=== PATIENT | female | born 1955 | race Caucasian/White ===

== ENCOUNTER 2018-10-02 15:24 | Inpatient (IN) ==
[2018-10-02] MEDS ORDERED: CATAPRES PO ONE (16:04)
[2018-10-02] MEDS ORDERED: LOPRESSOR PO ONE (16:04)
[2018-10-02] MEDS ORDERED: ATIVAN PO ONE (16:50)
[2018-10-02 17:27] LABS: BASO# 0.03 X1000 (0.0-0.2); BASO% 0.4 % (0.0-0.8); EOS# 0.29 X1000 (0.0-0.7); EOS% 3.9 % (0.0-10.0); HEMATOCRIT 31.2 % (37.0-47.0); HEMOGLOBIN 9.7 g/dL (12.0-16.0); IMM GRAN# 0.03 X1000 (0.0-0.04); IMM GRAN% 0.4 % (0.0-0.5); LYMPH# 1.94 X1000 (1.2-3.4); LYMPH% 25.9 % (20.5-51.1); MCH 31.4 PG (27-31); MCHC 31.1 g/dL (33-37); MONO% 9.3 % (1.7-9.3); MPV 10.3 FL (7.4-10.4); NEUT# 4.51 X1000 (1.4-6.5); NEUT% 60.1 % (42.2-75.2); PLT 231 X1000 (130-400); RBC 3.09 XMIL (4.2-5.4); RDW 12.6 % (11.5-14.5)
--- NOTE | 2018-10-02 17:33 | Diag Imaging Result Doc PS360 ---
EXAM: CHEST-1 VIEW HISTORY: chest pain TECHNIQUE: Portable chest single view COMPARISON: 03/17/2014 FINDINGS: The lungs are well expanded. The heart is not enlarged. The vessels are not distended. There are no infiltrates. No effusion identified. There is a granuloma in the mid left lung. IMPRESSION: Negative exam. Electronically signed by Sarmad Fonseca 10/02/2018 5:30 PM
[2018-10-02 17:36] LABS: INR 0.93; PROTIME 13.2 Seconds (11.0-16.0)
[2018-10-02 17:37] LABS: PTT 32.6 Seconds (22.3-41.8)
[2018-10-02 17:58] LABS: AGAP 10; ALB/GLOB RATIO 1.1; ALBUMIN 3.2 g/dL (3.5-5.0); ALKALINE PHOSPHATASE 94 U/L (32-104); BUN 12 mg/dL (8-22); CALCIUM 8.7 mg/dL (8.8-10.2); CHLORIDE 101 mmol/L (98-107); CK PROFILE 52 U/L (24-173); COSMO 280; CREATININE 0.8 mg/dL (0.5-0.9); ESTIMATED GFR > 60; GLUCOSE 83 mg/dL (70-104); GOT 15 U/L (10-30); GPT 13 U/L (10-36); POTASSIUM 3.8 mmol/L (3.5-5.1); SODIUM 141 mmol/L (136-145); TCO2 30 mmol/L (25-35); TOTAL BILIRUBIN 0.15 mg/dL (0.20-1.00); TOTAL PROTEIN 6.1 g/dL (6.3-8.3)
[2018-10-02] MEDS ORDERED: LOVENOX SUBQ ONE (19:22)
[2018-10-02] MEDS ORDERED: LOVENOX 1 MG/KG SUBQ ONE (19:22)
--- NOTE | 2018-10-02 19:38 | PROVIDER DOCUMENTATION ---
This chart was entered by Molly Strange Scribe, acting as scribe for Heladio Messina MD. HPI-Chest Pain - General Chief Complaint: Chest Pain Stated Complaint: CP Time Seen by Provider: 10/02/18 15:47 Source: patient Allergies/Adverse Reactions: Patient Allergies Allergy/AdvReac Type Severity Reaction Status Date / Time Sulfa (Sulfonamide Allergy Severe rash, SOB Verified 10/02/18 15:47 Antibiotics) morphine Allergy Intermediate HEADACHE Verified 10/02/18 15:47 gabapentin [From Neurontin] Allergy Unknown Verified 10/02/18 15:47 gluten Allergy DIARRHEA Verified 10/02/18 15:47 lactose Allergy CONSTIPATIO Verified 10/02/18 15:47 N Home Medications: Home Medication List Medication Instructions Recorded Confirmed Last Taken Type Amphet Asp/Amphet/D-Amphet 10 mg PO BID 03/18/14 03/18/14 Unknown History [Adderall 10 mg Tablet] Baclofen 10 mg PO TID 03/18/14 03/18/14 Unknown History Cholecalciferol (Vit D3) [Vitamin 5,000 unit PO TID 03/18/14 03/18/14 Unknown History D] Dextromethorphan HBr/Quinidine 1 each PO BID 03/18/14 03/18/14 Unknown History [Nuedexta 20-10 mg Capsule] Levothyroxine [Synthroid] 125 mcg PO DAILY 03/18/14 03/18/14 Unknown History Linaclotide [Linzess] 290 mcg PO DAILY 03/18/14 03/18/14 Unknown History Nebivolol HCl [Bystolic] 20 mg PO DAILY 03/18/14 03/18/14 Unknown History Ondansetron [Ondansetron Odt] 4 mg PO TID PRN PRN 03/18/14 03/18/14 Unknown History Oxcarbazepine [Trileptal] 300 mg PO BID 03/18/14 03/18/14 Unknown History Prochlorperazine [Compazine] 10 mg PO Q6H PRN PRN 03/18/14 03/18/14 Unknown History Vitamin B Complex [B Complex] 1 tab PO BID 03/18/14 03/18/14 Unknown History Docusate Sodium [Colace] 100 mg PO BID #0 capsule 03/25/14 Unknown Rx Escitalopram [Lexapro] 20 mg PO DAILY #0 tablet 03/25/14 Unknown Rx Lamotrigine [Lamictal] 25 mg PO DAILY #0 tablet 03/25/14 Unknown Rx Prazosin [Minipress] 1 mg PO QHS #0 capsule 03/25/14 Unknown Rx Zolpidem [Ambien] 10 mg PO QHS #0 tablet 03/25/14 Unknown Rx - History of Present Illness-CP Nature of Presenting Problem: Patient is a 63 year old female who presents to the ED via EMS with chest pain. Patient states shortness of breath and diaphoresis. Patient states symptoms started 1 hour prior to arrival. Patient states she is currently in rehab after having back surgery on September 26. Patient states chest pain has improved. Location: reports: substernal Chest Pain Radiation: reports: no radiation Quality of Pain: reports: pressure Severity in ED: mild Onset/Duration: 1 hour ago Timing: improving Context/Activities at Onset: reports: light activity Modifying Factors: improves with: lying down (improve), movement (worse) Associated Symptoms: reports: diaphoresis, shortness of breath Similar Symptoms Previously?: No Recently Seen Here or By Another Healthcare Provider: Yes Review of Systems - Adult - REVIEW OF SYSTEMS - ADULT Constitutional: reports: no symptoms reported Eyes: reports: no symptoms reported Ears, Nose, Mouth & Throat: reports: no symptoms reported Cardiovascular: reports: chest pain. denies: orthopnea, poor circulation, syncope Respiratory: reports: shortness of breath. denies: cough, wheezing Gastrointestinal: reports: no symptoms reported Genitourinary: reports: no symptoms reported Musculoskeletal: reports: no symptoms reported Integumentary: reports: no symptoms reported Neurological: reports: no symptoms reported Psychiatric: reports: no symptoms reported Endocrine: reports: no symptoms reported Hematologic/Lymphatic: reports: no symptoms reported Allergic/Immunologic: reports: no symptoms reported All Other Systems: Reviewed and Negative Past History - Adult - PAST MEDICAL HISTORY-ADULT Review of Records: reports: Nursing Assessment Review, Medications Reviewed, Social history reviewed & non-contributory. Major Childhood Illnesses: reports: denies history Cardiovascular: reports: HTN Respiratory: reports: denies history Gastrointestinal: reports: denies history Obstetrical/Gynecological: reports: denies history Genitourinary: reports: kidney disease Musculoskeletal: reports: denies history Neurological: reports: Multiple Sclerosis Psychiatric: reports: depression, ptsd Endocrine/Immune: reports: denies history Other Conditions: reports: denies history - PRIOR SURGERIES/PROCEDURES Surgical/Procedure History: reports: cholecystectomy, hysterectomy, , back/neck (back) - IMMUNIZATION STATUS Childhood Immunizations: See Nurse Assessment Flu Vaccine: See Nurse Assessment - FAMILY HISTORY Family History: reviewed, not pertinent - SOCIAL HISTORY Smoking: cigarettes (former) Substance Use: denies Physical Exam-General - PHYSICAL EXAM-ADULT Initial Vital Signs Reviewed: Yes - CONSTITUTIONAL General Appearance: alert, no apparent distress - HEAD, EARS, NOSE, MOUTH & THROAT HENMT: moist mucous membranes - NECK Neck: normal inspection - RESPIRATORY Respiratory: chest non-tender, lungs clear, normal breath sounds - CARDIOVASCULAR Cardiovascular: normal peripheral pulses, tachycardia - GASTROINTESTINAL (ABDOMEN) Abdominal Exam: normal bowel sounds, non tender, soft - MUSCULOSKELETAL Extremity: non-tender, normal inspection - SKIN Integumentary: normal color, diaphoresis - NEUROLOGIC Neurologic: grossly normal - PSYCHIATRIC Psych/Mental Status: normal mood/affect, oriented x 3 Progress - PLAN OF CARE/RESULTS Progress/Plan/Lab Results: Vital Signs - 8 hr 10/02/18 15:50 10/02/18 15:52 10/02/18 16:30 Temperature 98.9 F Pulse Rate 133 H 127 H 120 H Respiratory Rate 18 18 16 Blood Pressure 163/110 163/110 O2 Sat by Pulse Oximetry 95 96 94 L 10/02/18 16:49 10/02/18 17:02 10/02/18 17:32 Temperature Pulse Rate 116 H 125 H 131 H Respiratory Rate 32 H 14 18 Blood Pressure 197/176 161/102 130/97 O2 Sat by Pulse Oximetry 96 92 L 96 10/02/18 18:02 10/02/18 18:32 10/02/18 19:02 Temperature Pulse Rate 127 H 109 H 110 H Respiratory Rate 18 21 25 H Blood Pressure 145/95 133/101 140/90 O2 Sat by Pulse Oximetry 94 L 94 L 96 Laboratory Results - last 24 hr 10/02/18 10/02/18 10/02/18 17:05 17:05 17:05 WBC 7.50 RBC 3.09 L Hgb 9.7 L Hct 31.2 L MCV 101.0 H MCH 31.4 H MCHC 31.1 L RDW Std Deviation 12.6 Plt Count 231 MPV 10.3 Immature Gran % (Auto) 0.4 Neut % (Auto) 60.1 Lymph % (Auto) 25.9 Warrick % (Auto) 9.3 Eos % (Auto) 3.9 Baso % (Auto) 0.4 Immature Gran # (Auto) 0.03 Neut # (Auto) 4.51 Lymph # (Auto) 1.94 Warrick # (Auto) 0.70 H Eos # (Auto) 0.29 Baso # (Auto) 0.03 PT INR PTT (Actin FS) Sodium 141 Potassium 3.8 Chloride 101 Carbon Dioxide 30 Anion Gap 10 BUN 12 Creatinine 0.8 Estimated GFR/1.73 m2 > 60 BUN/Creatinine Ratio 15 Glucose 83 Calculated Osmolality 280 Calcium 8.7 L Total Bilirubin 0.15 L AST 15 ALT 13 Alkaline Phosphatase 94 Creatine Kinase 52 Troponin T Nlt-L-Bezabwxkkhi Pept 1931 H Total Protein 6.1 L Albumin 3.2 L Globulin 2.9 Albumin/Globulin Ratio 1.1 10/02/18 10/02/18 17:05 17:05 WBC RBC Hgb Hct MCV MCH MCHC RDW Std Deviation Plt Count MPV Immature Gran % (Auto) Neut % (Auto) Lymph % (Auto) Warrick % (Auto) Eos % (Auto) Baso % (Auto) Immature Gran # (Auto) Neut # (Auto) Lymph # (Auto) Warrick # (Auto) Eos # (Auto) Baso # (Auto) PT 13.2 INR 0.93 PTT (Actin FS) 32.6 Sodium Potassium Chloride Carbon Dioxide Anion Gap BUN Creatinine Estimated GFR/1.73 m2 BUN/Creatinine Ratio Glucose Calculated Osmolality Calcium Total Bilirubin AST ALT Alkaline Phosphatase Creatine Kinase Troponin T < 0.010 Lcz-C-Tqctqviakrq Pept Total Protein Albumin Globulin Albumin/Globulin Ratio Orders Category Date Time Status Cardiac Monitoring DIRECTED Care 10/02/18 15:53 Active Oxygen Therapy- ED Nursing DIRECTED Care 10/02/18 15:53 Active Saline Loc NOW Care 10/02/18 15:53 Active CHEST-1 VIEW [RAD] Stat Exams 10/02/18 17:14 Completed CBC WITH ELECTRONIC DIFF [HEME] Stat Lab 10/02/18 17:05 Completed CK PROFILE [SP CHEM] Stat Lab 10/02/18 17:05 Completed COMPREHENSIVE METABOLIC PANEL [CHEM] Stat Lab 10/02/18 17:05 Completed D-DIMER [COAG] Stat Lab 10/02/18 17:05 Received PRO B-NATRIURETIC PEPTIDE Stat Lab 10/02/18 17:05 Completed PROTIME WITH INR [COAG] Stat Lab 10/02/18 17:05 Completed PTT [COAG] Stat Lab 10/02/18 17:05 Completed TROPONIN T Stat Lab 10/02/18 17:05 Completed Clonidine [Catapres] Med 10/02/18 16:04 Discontinued 0.2 mg PO NOW ONE Enoxaparin 1 mg/kg [Lovenox 1 mg/kg] Med 10/02/18 19:22 Discontinued 1 each SUBQ NOW ONE Lorazepam [Ativan] Med 10/02/18 16:50 Discontinued 1 mg PO NOW ONE Metoprolol [Lopressor] Med 10/02/18 16:04 Discontinued 25 mg PO NOW ONE CP/SOB/Palp >45 yrs of Age Stat Oth 10/02/18 15:53 Ordered Result Diagrams: 10/02/18 17:05 10/02/18 17:05 - EKG 1 Time of EKG reading by physician:: 15:34 EKG Read and Signed by:: Heladio Messina EKG Interpretation (*Must complete 3 of following elements*): Abnormal Rate: 123 Rhythm: atrial fibrillation with rapid ventricular response QRS: LBB Comments: abnormal ECG - XRAY 1 XRAY Study: Chest Impression: See EMR Report ( EXAM: CHEST-1 VIEW HISTORY: chest pain TECHNIQUE: Portable chest single view COMPARISON: 03/17/2014 FINDINGS: The lungs are well expanded. The heart is not enlarged. The vessels are not distende d. There are no infiltrates. No effusion identified. There is a granuloma in the mid left lung. IMPRESSION: Negative exam. Electronically signed by Sarmad Fonseca 10/02/2018 5:30 PM [id number] Interpreting Physician: Sarmad Fonseca MD Dictated Date/Time: 10/02/18 173 cc: Heladio Messina MD; None,PCP) - CONSULTS/PCP/HOSPITALIST Notification #1 *[facility]: 19:30 Consult Disposition: other (this is the 3rd phone communicaiton . cardiology [facility] Monet willing to consult but no telemetry bed and transfer not accepted) #2 Consult: dr Prado Time Discussed: 19:32 Consult Disposition: Admit - CHANGE OF SHIFT REPORT (ED Provider) 1 Report Given and Care Transferred to:: DR Yariel DE LA FUENTE Time of Transfer: 19:37 Items Pending: Other (IV ACCESS) Departure - Departure Date of Disposition Decision: 10/02/18 Time of Disposition Decision: 19:32 DIAGNOSIS: Chest pain, Hypercoagulable state, Atrial fibrillation with RVR Disposition: ADMITTED INPATIENT 09 Certified Medical Emergency: Emergent Condition: Stable Referrals and Follow-Ups: Erwin Singer MD [ACTIVE STAFF PHYSICIAN] - - Critical Care Note This patient required my direct & personal management of CC.: Yes Total Time (mins): 35 Critical Care Statement: This patient required my direct personal management to treat or rule out processes, the absence of which, could potentiallly result in sudden, clinically significant life or limb threatening deterioration. Attestation - Physician/ ENRIKE Attestation The physician spent face to face time with patient:: Yes Advanced Practice Provider documentation review:: Supervising physician onsite and consulted in the evaluation and care of this patient. The physician did have a face to face encounter with the patient. This chart was documented by the indicated scribe, (Molly Strange Scribe) and accurately reflects the services I performed and decisions made by me, Heladio Messina MD, as attested by the provider's signature.
--- NOTE | 2018-10-02 21:55 | Diag Imaging Result Doc PS360 ---
EXAM: CT ANGIOGRM PULMONARY ARTERIES HISTORY: CP,Recent Surgery,Elevated D-Dimer TECHNIQUE: CT chest with intravenous contrast. Pulmonary arterial protocol with MIP images. COMPARISON: 02/02/2013 FINDINGS: There are tiny bilateral pleural effusions. The heart is enlarged. No thoracic aortic aneurysm or dissection. Normal opacification of the pulmonary arteries and their major branches. No enlarged lymph nodes. No consolidation. There is pulmonary edema. A calcified granuloma is in the left upper lobe and there are small calcified left hilar lymph nodes. IMPRESSION: 1.No pulmonary emboli 2.Cardiomegaly with pulmonary edema and trace pleural fluid 3.There is evidence of a prior granulomatous infection This exam was performed using automated exposure control, adjustment of mA or kV according to patient size, and/or use of iterative reconstruction technique. Electronically signed by Sarmad Fonseca 10/02/2018 9:52 PM
[2018-10-03] MEDS: ULTRAM PO PRN ×2 (05:11→21:22)
[2018-10-03 05:42] LABS: BASO# 0.03 X1000 (0.0-0.2); BASO% 0.4 % (0.0-0.8); EOS# 0.38 X1000 (0.0-0.7); EOS% 5.4 % (0.0-10.0); HEMOGLOBIN 9.2 g/dL (12.0-16.0); IMM GRAN# 0.03 X1000 (0.0-0.04); IMM GRAN% 0.4 % (0.0-0.5); LYMPH# 1.92 X1000 (1.2-3.4); LYMPH% 27.4 % (20.5-51.1); MCH 31.5 PG (27-31); MCHC 30.7 g/dL (33-37); MCV 102.7 FL (81-99); MONO# 0.82 X1000 (0.11-0.59); MONO% 11.7 % (1.7-9.3); MPV 10.2 FL (7.4-10.4); NEUT# 3.83 X1000 (1.4-6.5); NEUT% 54.7 % (42.2-75.2); PLT 236 X1000 (130-400); RBC 2.92 XMIL (4.2-5.4); RDW 12.8 % (11.5-14.5); WBC 7.01 X1000 (4.8-10.8)
[2018-10-03 05:50] LABS: AGAP 9; BUN 12 mg/dL (8-22); CALCIUM 9.1 mg/dL (8.8-10.2); CHLORIDE 103 mmol/L (98-107); COSMO 288; CREATININE 0.8 mg/dL (0.5-0.9); ESTIMATED GFR > 60; GLUCOSE 82 mg/dL (70-104); POTASSIUM 4.1 mmol/L (3.5-5.1); SODIUM 145 mmol/L (136-145); TCO2 33 mmol/L (25-35)
[2018-10-03] MEDS: ZOFRAN IV PRN ×2 (06:43→21:55)
[2018-10-03] MEDS: DILAUDID IV PRN ×3 (06:44→23:03)
--- NOTE | 2018-10-03 07:38 | EKG Report ---
Test Performed on : 10/02/2018 3:34:01 PM Test Reason : ED. NO EKG ORDER FOR MUSE Blood Pressure : / mmHG Vent. Rate : 123 BPM Atrial Rate : 138 BPM P-R Int : 000 ms QRS Dur : 128 ms QT Int : 348 ms P-R-T Axes : 000 -25 001 degrees QTc Int : 498 ms Atrial fibrillation. with rapid ventricular response. Left bundle branch block Abnormal ECG When compared with ECG of 18-MAR-2008 07:58, Atrial fibrillation. has replaced Sinus rhythm. ST no longer elevated in Inferior leads Nonspecific T wave abnormality now evident in Inferior leads Nonspecific T wave abnormality, improved in Lateral leads Unconfirmed Result
--- NOTE | 2018-10-03 08:02 | HISTORY AND PHYSICAL ---
PRIMARY CARE PHYSICIAN: Unknown CHIEF COMPLAINT: Chest pain and shortness of breath x 1 day. HISTORY OF PRESENTING ILLNESS: This is a 63-year-old female with a history of seizure disorder, hypothyroidism, hypertension and prothrombin mutation 2 who had presented to emergency department with complaint of chest pain and shortness of breath for the past day or so. She states that she recently had back surgery and had went to rehab; however, they did not continue her anticoagulation there. She was evaluated in the emergency department. Due to her presenting symptoms, it was thought that she would need admission for further management. At the time of my examination, patient had denied any headache, visual changes, nausea, vomiting, diarrhea, hemoptysis, melena, but complained of chest pain and shortness of breath. PAST MEDICAL HISTORY: Includes prothrombin mutation 2, hypothyroidism, hypertension, seizure disorder. PAST SURGICAL HISTORY: Back surgery and cervical fusion. Right arm surgery. ALLERGIES: Sulfa, morphine, gabapentin, gluten and lactulose. MEDICATIONS: Current medications include: Adderall 10 mg p.o. b.i.d., Colace 100 mg p.o. b.i.d., Lexapro 20 mg p.o. daily, Lamictal 25 mg p.o. daily, levothyroxine 125 mcg p.o. daily, Linzess 290 mcg p.o. daily, Bystolic 20 mg p.o. daily, Trileptal 300 mg p.o. b.i.d., Minipress 1 mg p.o. at bedtime, Ambien 10 mg p.o. at bedtime. SOCIAL HISTORY: No history of smoking. Admits to social alcohol use. Denies any illicit drug use. FAMILY HISTORY: No history of coronary disease. REVIEW OF SYSTEMS: Fourteen point review of systems is as in HPI. Other systems negative. PHYSICAL EXAMINATION: GENERAL: Cooperative, friendly female. She is resting more comfortably now. VITAL SIGNS: Temperature 98.9, pulse 127 respiration 18, blood pressure 163/110. HEENT: Atraumatic, normocephalic. Extraocular movements intact. PERRLA. NECK: No masses. CHEST: Clear to auscultation. CARDIOVASCULAR: Irregular. ABDOMEN: Soft, positive bowel sounds. EXTREMITIES: Trace edema. NEUROLOGIC: She is awake, alert, oriented x 3. GENITOURINARY: No bladder distention. SKIN: Warm. LABORATORIES AND STUDIES: WBC 7.50, hemoglobin 9.7, hematocrit 31.2, platelets 231,000. BUN 12, creatinine 0.8 glucose is 83, D-dimer is 2.78. ASSESSMENT: A 63-year-old female with a history of hypertension, hypothyroidism, seizure disorder and prothrombin mutation 2 who had presented to emergency department with complaint of chest pain and shortness of breath for the past day or so. She was evaluated in the emergency department. She was also found to be in atrial fibrillation with rapid ventricular response. She was given a beta-dixie and rate seemed to decrease somewhat; however, due to her presenting symptoms, she will need admission for further management. 1. Chest pain. 2. Atrial fibrillation with rapid ventricular response. 3. Increase in D-dimer. Will need to rule out pulmonary embolism. 4. Seizure disorder. 5. Hypertension. PLAN: 1. We will admit patient to [facility]. 2. Continue with cardiac workup. Check EKG, serial cardiac enzymes. Have patient continue on aspirin. We will use sublingual nitroglycerin p.r.n. chest pain. 3. We will consult Cardiology. 4. We will continue patient on anticoagulation with Lovenox and obtain a CT angiogram. 5. Continue monitor patient on telemetry and start Cardizem drip for rate increases. 6. Put patient on seizure precautions. 7. We will restart her antiepileptic agents. 8. We will monitor blood pressures. Resume antihypertensive agent. 9. We will continue with DVT prophylaxis with Lovenox. 10. We will continue to follow and reassess. Make further recommendation based on patient's clinical course. cc: Andrea Prado MD MTDD
[2018-10-03] MEDS ORDERED: DESYREL PO PRN (09:07)
--- NOTE | 2018-10-03 09:28 | EKG Report ---
Test Performed on : 10/03/2018 09:14:14 AM Test Reason : chest pain Blood Pressure : / mmHG Vent. Rate : 056 BPM Atrial Rate : 056 BPM P-R Int : 184 ms QRS Dur : 098 ms QT Int : 466 ms P-R-T Axes : 020 -34 045 degrees QTc Int : 449 ms Sinus bradycardia. Left axis deviation Septal infarct , age undetermined Abnormal ECG When compared with ECG of 02-OCT-2018 15:34, (Unconfirmed) Sinus rhythm. has replaced Atrial fibrillation. Vent. rate has decreased BY 67 BPM Left bundle branch block is no longer present Septal infarct is now present Unconfirmed Result
[2018-10-03] MEDS: SYNTHROID PO SCH (10:23)
[2018-10-03] MEDS: BYSTOLIC PO SCH (10:23)
[2018-10-03] MEDS: LASIX IV SCH (10:24)
[2018-10-03] MEDS: COZAAR PO SCH (10:24)
[2018-10-03] MEDS: LEXAPRO PO SCH (10:24)
[2018-10-03] MEDS: CYMBALTA PO SCH ×2 (10:24→20:03)
[2018-10-03] MEDS: ASPIRIN PO SCH (10:24)
[2018-10-03] MEDS: LOVENOX SUBQ SCH ×2 (10:48→23:03)
--- NOTE | 2018-10-03 10:56 | CARDIOLOGY CONSULTATION ---
DATE: 10/03/2018 HISTORY OF PRESENT ILLNESS: Ms. Leslie is a 63-year-old lady, who underwent lumbar surgery 2 weeks ago. Had been in rehab since 09/26/2018, experienced episodes of chest pain in the epigastric area and shortness of breath over several hours, and she came to the emergency room, was noted to be in atrial fibrillation, now she is in sinus rhythm. She has history of hypertension. She also has history of having had clotting factor abnormalities and has had DVTs in the upper extremities in the past. She complains of right lower extremity pain. D-dimers were elevated. She had a CT scan done which revealed cardiomegaly. There was features suggestive of heart failure. There was no pulmonary embolism. In the past, she has not had any atrial fibrillation. She denies having any dizziness or syncope. REVIEW OF SYSTEM: General: A 14-point review of systems was done. GI system: There is no history of nausea, vomiting, diarrhea. There is no history of hematemesis or melena. Central nervous system: No focal weakness to suggest a CVA or TIA. PAST MEDICAL HISTORY: Seizure disorder, hypothyroidism, hypertension, prothrombin mutation defects per patient, exact not known, back surgery, cervical fusion surgery, right arm surgery. The patient is , retired, lives at home. Has been in rehab recently. She is allergic to sulfonamides, morphine, gabapentin, lactulose. PHYSICAL EXAMINATION: Vital Signs: On examination, blood pressure 188/68. Cardiovascular System: Normal jugular venous pressure. There is no thyromegaly, no carotid bruit. First and second heart sounds were heard. There was scattered wheeze. Abdomen: Soft, obese, nontender. There was no guarding or rigidity. Bowel sounds were heard. Central nervous system: Alert, was moving all 4 extremities, Extremities: Examination of extremities revealed mild pedal edema. HEENT: Atraumatic, normocephalic. Pupils were equal and reacting to light. LABS: Sodium 145, potassium 4.1, BUN 12, creatinine 0.8. Cardiac enzymes negative. Hemoglobin 9.2, hematocrit 30, platelet count of 236. ASSESSMENT AND PLAN: Ms. Keyla Leslie is a 63-year-old lady, who has clotting disorders, hypertension, hypothyroidism, seizure disorder. Underwent back surgery a couple of weeks back, was in the rehab since 09/26/2018, and surgery was in [place]. She had episodes of chest discomfort in the epigastric area associated with shortness of breath. Was noted to be in atrial fibrillation. Currently in sinus rhythm. First set of cardiac enzymes were negative. PLAN: 1. From a cardiac standpoint, we will get serial cardiac enzymes. If cardiac enzymes are negative we will plan for a Cardiolite stress test to assess for and rule out ischemia. 2. She was in atrial fibrillation. No previous history. Currently in sinus rhythm. We will get an echocardiogram to assess cardiac and valvular function. 3. Hypertension. Blood pressure was elevated. We will start her back on her Bystolic and add Cozaar 50 mg to her medical regimen. 4. Chest CT suggestive of heart failure. We will await echocardiogram and further testing to see the etiology of heart failure. We will start her on Lasix 40 mg intravenous daily. 5. As far as anticoagulation therapy is concerned, she has a deep vein thrombosis. We will put her on Lovenox 1 mg/kg subcutaneous twice daily pending further cardiac testing. We will change to oral anticoagulation therapy after the cardiac tests are performed. Thank you for the consult. We will follow hospital course. cc: Roque Weiss MD
[2018-10-03] MEDS ORDERED: NEURONTIN PO SCH (13:00)
--- NOTE | 2018-10-03 18:11 | PROGRESS NOTE ---
DATE: 10/03/2018 SUBJECTIVE: The patient is resting comfortable. OBJECTIVE: Vital Signs: Temperature 98.1 degrees, pulse 86, respirations 18, blood pressure 173/50, and oxygen saturation 100%. HEENT: Atraumatic and normocephalic. Cardiovascular: S1, S2. Respiratory: There is evidence of good air entry bilaterally. Abdomen: Soft and nontender. No masses felt. Extremities: No evidence of edema. Central Nervous System: No obvious focal deficits. LABORATORY: WBC 7.01, hematocrit 30.2 with a platelet count of 236,000. Sodium is 144, potassium 4.1, chloride is 103, bicarb 30, BUN is 12 and creatinine 0.8. ASSESSMENT AND PLAN: 1. Atypical chest pain. CTA of the chest does not show any evidence of PE. Cardiac enzymes have been negative so far. Cardiology has been consulted. 2. DVT left lower extremity. Anticoagulation has been initiated. 3. Hypertension. Continue current antihypertensive regimen. 4. Seizure disorder. Maintain patient on seizure precaution. Continue antiepileptic drugs. 5. Hypothyroidism. Continue levothyroxine. cc: Brain Dill MD
[2018-10-03] MEDS: MINIPRESS PO SCH (20:03)
[2018-10-03] MEDS ORDERED: LOVENOX SUBQ SCH (21:00)
--- NOTE | 2018-10-03 22:32 | ECHO REPORT ---
ORDER DATE: 10/03/2018 MEASUREMENTS: Left ventricular internal diameter in diastole 4.4, end systole 3.2. Septal thickness 0.9, aortic root 2.8, left atrium 4.1. SUMMARY: 1. Technically difficult study due to limited acoustic window quality. 2. Aortic valve appears without evidence of structural abnormality and opens adequately on 2- dimensional images. Peak gradient across the aortic valve is 13 mmHg. Mitral and tricuspid valves are without evidence of structural abnormality, while the pulmonic valve was not well demonstrated. There is trace mitral regurgitation. The aortic root is normal size. 3. Normal left ventricular dimension is suggested on 2-dimensional images. Estimated left ventricular ejection fraction appears to be at least 60%. No regional wall motion abnormalities evident. Left atrium is mildly enlarged. The right atrium and right ventricle are normal size with grossly preserved right ventricular systolic function. 4. No pericardial effusion. 5. Appearance of inferior vena cava suggests normal central venous pressure. cc: MD Yin Pastor PA
[2018-10-04] MEDS: DILAUDID IV PRN ×2 (02:46→13:32)
[2018-10-04] MEDS: ASPIRIN PO SCH (09:39)
[2018-10-04] MEDS: NEURONTIN PO SCH ×3 (09:39→17:08)
[2018-10-04] MEDS: LEXAPRO PO SCH (09:39)
[2018-10-04] MEDS: CYMBALTA PO SCH ×2 (09:39→21:09)
[2018-10-04] MEDS: ULTRAM PO PRN (09:39)
[2018-10-04] MEDS: SYNTHROID PO SCH (09:40)
[2018-10-04] MEDS: LASIX IV SCH ×2 (09:40→13:33)
[2018-10-04] MEDS: LOVENOX SUBQ SCH (11:23)
--- NOTE | 2018-10-04 11:31 | PROGRESS NOTE ---
DATE: 10/04/2018 SUBJECTIVE: Patient is resting comfortably in bed. OBJECTIVE: Vital signs: Temperature is 98.3 degrees, pulse 64, respirations 15, blood pressure 184/64, oxygenation is 94%. HEENT: She is atraumatic, normocephalic. Cardiovascular: S1, S2. Respiratory: Has evidence of good air entry bilaterally. Abdomen: Soft, nontender. No masses felt. Central nervous system: No obvious focal deficits noted. LABORATORY DATA: None. ASSESSMENT AND PLAN: 1. Atypical chest pain. The patient is scheduled to have a cardiac stress test today. Cardiology following. 2. Deep vein thrombosis left lower extremity. Continue anticoagulation. 3. Hypertension. Continue current antihypertensive regimen. 4. Seizure disorder. Continue the patient on seizure precaution and maintain antiepileptic drugs. 5. Hypothyroidism. Continue levothyroxine. cc: Brain Dill MD
[2018-10-04 11:49] LABS: AGAP 12; BUN 12 mg/dL (8-22); CHLORIDE 97 mmol/L (98-107); COSMO 278; CREATININE 0.8 mg/dL (0.5-0.9); ESTIMATED GFR > 60; GLUCOSE 84 mg/dL (70-104); MAGNESIUM 1.8 mg/dL (1.5-2.7); SODIUM 140 mmol/L (136-145); TCO2 31 mmol/L (25-35)
[2018-10-04] MEDS: ZOFRAN IV PRN (13:33)
[2018-10-04] MEDS: MIRALAX PO SCH (13:34)
[2018-10-04] MEDS: COZAAR PO SCH (13:39)
[2018-10-04] MEDS: BYSTOLIC PO SCH (13:39)
[2018-10-04] MEDS: MINIPRESS PO SCH (21:09)
[2018-10-04] MEDS: ELIQUIS PO SCH (21:09)
[2018-10-05] MEDS: BYSTOLIC PO SCH (08:16)
[2018-10-05] MEDS: SYNTHROID PO SCH (08:16)
[2018-10-05] MEDS: MIRALAX PO SCH (08:16)
[2018-10-05] MEDS: COZAAR PO SCH (08:17)
[2018-10-05] MEDS: LEXAPRO PO SCH (08:17)
[2018-10-05] MEDS: ELIQUIS PO SCH ×2 (08:17→20:42)
[2018-10-05] MEDS: NEURONTIN PO SCH ×3 (08:17→20:42)
[2018-10-05] MEDS: ASPIRIN PO SCH (08:17)
[2018-10-05] MEDS: CYMBALTA PO SCH ×2 (08:17→20:41)
[2018-10-05] MEDS: LASIX IV SCH (08:17)
--- NOTE | 2018-10-05 16:34 | PROGRESS NOTE ---
DATE: 10/05/2018 SUBJECTIVE: Patient resting in bed. OBJECTIVE: Vital Signs: Temperature 97.9 degrees, pulse is 64, respiratory rate 16, blood pressure is 173/60, oxygen saturation 98%. HEENT: Atraumatic, normocephalic. Cardiovascular System: S1, S2. Respiratory system has evidence of good air entry bilaterally. Abdomen: Soft, nontender. No masses felt. Extremities: No evidence of edema. Central Nervous System: No obvious focal deficit noted. LABORATORY DATA: None. ASSESSMENT: 1. Atypical chest pain. The patient did have a cardiac stress test yesterday, but she was unable to complete the study because of back pain. She will possibly be discharged tomorrow, and she will need to follow up with a retail leasing agent in the outpatient. 2. Deep vein thrombosis (DVT) of the left lower extremity. Continue anticoagulation. 3. Hypertension. Continue current antihypertensive regimen. 4. Seizure disorder. Continue seizure precaution as well as antiepileptic drug. 5. Hypothyroidism. Continue levothyroxine. cc: Brain Dill MD
--- NOTE | 2018-10-05 17:50 | Extremity Venous Study ---
PROCEDURE NAME: Venous U/S Bilateral Legs - 10/03/2018 REFERRING PHYSICIAN: Andrea Prado MD READING PHYSICIAN: Jeremiah Lou MD MOBILE APPLICATION TESTER: Sonya Rosas RVT INDICATION: Right leg pain. 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 FINDINGS: Deep and superficial veins of the right lower extremity were imaged throughout their course first. They are compressible and patent without thrombus. The left side was then imaged. There is acute thrombus of the left common femoral vein, which appears to be mobile, but nonocclusive. There is acute thrombosis of the left greater saphenous vein. INTERPRETATION: Acute nonoccluding mobile deep vein thrombosis (DVT) of the left common femoral vein and acute superficial vein thrombosis (SVT) of the left greater saphenous vein. cc: Jeremiah Lou MD
[2018-10-05] MEDS: MINIPRESS PO SCH (20:44)
--- NOTE | 2018-10-06 09:05 | Diag Imaging Result Document ---
PROCEDURE NAME: MYOCARDIAL PERFU SCAN, REST - 10/04/2018 RESTING MYOCARDIAL PERFUSION SCAN: 14 millicuries of Cardiolite was injected. Gated SPECT images were obtained in standard views. Images revealed significant chest wall attenuation. There is normal myocardial perfusion. The patient refused stress imaging. CONCLUSIONS: Normal resting myocardial perfusion images. cc: MD Yin Lunsford PA
[2018-10-06] MEDS: NEURONTIN PO SCH (09:06)
[2018-10-06] MEDS: MIRALAX PO SCH (09:06)
[2018-10-06] MEDS: BYSTOLIC PO SCH (09:06)
[2018-10-06] MEDS: ELIQUIS PO SCH (09:06)
[2018-10-06] MEDS: LASIX IV SCH (09:07)
[2018-10-06] MEDS: SYNTHROID PO SCH (09:07)
[2018-10-06] MEDS: CYMBALTA PO SCH (09:07)
[2018-10-06] MEDS: LEXAPRO PO SCH (09:07)
[2018-10-06] MEDS: ASPIRIN PO SCH (09:07)
[2018-10-06] MEDS: COZAAR PO SCH (09:07)
[2018-10-06 11:39] VITALS: BP 121/53
--- NOTE | 2018-10-06 18:19 | DISCHARGE SUMMARY ---
ADMISSION DATE: 10/02/2018 DISCHARGE DATE: 10/06/2018 PRINCIPAL DIAGNOSIS: That of atypical chest pain, query etiology. SECONDARY DIAGNOSES: 1. Atrial fibrillation. 2. Seizure disorder. 3. Hypertension. 4. Hypothyroidism. 5. Deep venous thrombosis involving the left lower extremity. DISCHARGE MEDICATIONS: Include the followin. Aspirin 81 mg p.o. daily. 2. Eliquis 5 mg p.o. twice a day. 3. Vitamin D 1000 units daily. 4. Baclofen 10 mg p.o. 3 times a day. 5. Bystolic 20 mg p.o. daily. 6. Levothyroxine 125 mcg p.o. daily. 7. Prazosin 1 mg p.o. at bedtime. 8. Duloxetine 30 mg p.o. twice a day. 9. Trazodone 100 mg p.o. at bedtime. 10. Gabapentin 600 mg 3 times a day. 11. Tramadol 50 mg every 6 hours. CONSULTATIONS DONE DURING THIS HOSPITAL STAY: [*], Cardiology. PROCEDURES DONE DURING THIS HOSPITAL STAY: 1. CTA of the chest done on 10/02/2018 shows no evidence of PE, but does have evidence of cardiomegaly as well as pulmonary edema and also trace pleural effusion. Also, evidence of prior granulomatous infection. 2. Echocardiogram 10/03/2018 that showed normal left ventricular dimension. Estimated left ventricular ejection fraction at least 60%. 3. Venous Doppler study left lower extremity positive for DVT. Shows acute nonoccluding mobile deep venous thrombosis of the left common femoral vein and also acute superficial vein thrombosis of the left greater saphenous vein. 4. Nuclear perfusion scan done 10/04/2018 shows normal resting myocardial perfusion images. The patient refused stress imaging. HOSPITAL COURSE: Ms. Keyla Leslie is a 63-year-old female who was admitted to the hospital because of chest pain as well as shortness of breath. She was also found to be in atrial fibrillation with rapid ventricular rate. The plan was to obtain serial cardiac enzymes and to start patient on a Cardizem infusion for the atrial fibrillation. NM was ruled out, negative cardiac enzymes. The patient was seen by the Cardiology team. She had a nuclear cardiac stress test done. Resting images were normal, but patient refused stress imaging. She was found to have a raised D-dimer level. CTA of the chest did not reveal any evidence of PE. However, venous Doppler study of the left lower extremity showed evidence of a nonoccluding mobile deep venous thrombosis of the left common femoral vein and also acute superficial vein thrombosis of the left greater saphenous vein. The patient was started on Eliquis. She will be discharged home on the same medication. PHYSICAL EXAMINATION: Vital Signs: During my evaluation today vital signs are as follows: Temperature 98.3, pulse 63, respirations 18, blood pressure 150/58, oxygen 94%. HEENT: Atraumatic, normocephalic. Cardiovascular: S1, S2. Respiratory: Has evidence of good air entry bilaterally. Abdomen: Soft, nontender. No masses felt. Extremities: No evidence of edema. Central Nervous System: No obvious focal deficit noted. PLAN: Patient will be discharged home today. She will continue Eliquis for anticoagulation in the outpatient at least for the next 6 months. She [*] to follow up with her information engineer in [place]. The patient will also need to follow up with her primary care physician. She is going to be going home with home health services. cc: Brain Dill MD
== END 2018-10-06 14:59 | disposition home health service (06) | DRG 309 ==
LOC: SUPCPDRO → ED 15:24 → 3S 21:54 → SUATTDRO 21:54 → 3N 10-05 11:39
PROVIDERS: ATTEND Internal Medicine
CPT/HCPCS: 71010; 71045; 71275; 78451; 78452; 80048; 80053; 82550; 83735; 83880; 84443; 84484; 85025; 85379; 85610; 85730; 93005; 93010; 93306; 93970; 94761; 96372; 99285; 99291; A9270; A9500; J1170; J1650; J1940; J2405; Q9967